=== PATIENT | male | born 1975 | race African-American/Black ===

== ENCOUNTER 2017-12-08 21:17 | Emergency (ER) | payer MEDICAID ==
[~2017-12-08] VITALS: Ht 172.7 cm; Wt 79.5 kg
[2017-12-09 03:01] LABS: BASOPHILS % 0.8 % (0.0-2.0); EOSINOPHILS % 1.6 % (0.0-5.0); HEMATOCRIT. 40.4 % (42.0-52.0); HEMOGLOBIN. 14.5 g/dL (14.0-18.0); LYMPHOCYTES % 25.1 % (20.0-50.0); MEAN CORPUSCULAR HEMOGLOBIN 32.9 pg (28.0-32.0); MEAN CORPUSCULAR VOLUME 91.6 fL (80.0-94.0); MEAN PLATELET VOLUME 7.2 fl (7.4-10.4); MONOCYTES % 5.1 % (2.0-8.0); NEUTROPHILS % 67.4 % (40.0-76.0); PLATELET 284 x1000/uL (130-400); RED BLOOD CELL COUNT 4.41 mill/uL (4.7-6.1); RED CELL DISTRIBUTION WIDTH 14.5 % (11.6-14.6)
[2017-12-09 03:17] LABS: CHLORIDE 107 mEq/L (98-107)
[2017-12-09 03:23] LABS: CARBON DIOXIDE 28 mEq/L (21-32)
[2017-12-09 05:25] VITALS: BP 128/77
== END 2017-12-09 05:27 | disposition home or self-care (01) ==
LOC: ER 22:28
DX: B34.9 Viral infection, unspecified (principal); I10 Essential (primary) hypertension; F17.200 Nicotine dependence, unspecified, uncomplicated
CPT/HCPCS: 36415; 80048; 85025; 87804; 93005; 99285